=== PATIENT | female | born 1940 | race Two or more races ===

== ENCOUNTER 2020-05-01 09:00 | Inpatient (IN) | payer OTHER ==
[~2020-05-01] VITALS: Ht 167.6 cm; Wt 87.9 kg
[~2020-05-01 09:00] MED LIST: ACYC-161 PO; ALBU108A14 IN; ASCO500C16 PO; B-CO1TAB8 PO; BIOT1CAP PO; CALC1TAB PO; CARB0.5D8 EACHEYE; CLON0.5T10 PO; COEN50CH PO; EYEL1PAD EX; GABA-339 PO; HYDR-531 PO; LATA0.0019 EACHEYE; LEVO88TA4 PO; LISI-648 PO; LOVA20TA4 PO; MAGN400C3 PO; MULT-688 PO; MULT1CHW18 PO; OMEG1CAP50 PO; POTA99CA2 PO; SENN1TAB14 PO; UMEC1AER IN; [UNRECOGNIZED DRUG - CODE] PO
[2020-05-01] MEDS ORDERED: CELECOXIB 100 MG CAP PO ONE (09:15)
[2020-05-01] MEDS ORDERED: ACETAMINOPHEN IV 1000 MG/100ML (10MG/ML) IV ONE ×2 (09:15→14:45)
[2020-05-01] MEDS ORDERED: PREGABALIN CAPSULE 75 MG CAP PO ONE (09:15)
[2020-05-01] MEDS ORDERED: ceFAZolin 1GM/50ML 50 ML IV ONE (09:36)
[2020-05-01] MEDS ORDERED: TRANEXAMIC ACID 0 ML ONE (10:40)
[2020-05-01] MEDS: BUPIVACAINE W/ EPINEPH 0.25% INJ 50ML MDV ONE ×2 (10:40→13:35)
[2020-05-01] MEDS ORDERED: VANCOMYCIN HCL 1000 MG VL ONE (10:49)
[2020-05-01] MEDS ORDERED: MIDAZOLAM HCL 1MG/1ML-2 ML VIAL ONE (11:22)
[2020-05-01] MEDS ORDERED: ROCURONIUM 10MG/ML 10ML VIAL IV ONE (11:22)
[2020-05-01] MEDS ORDERED: fentaNYL CITRATE 100 MCG/2 ML VL ONE (11:22)
[2020-05-01] MEDS ORDERED: SUCCINYLCHOLINE CHLORIDE 20 MG/ML 10ML VIAL IV ONE (11:24)
[2020-05-01] MEDS ORDERED: PROPOFOL 10 MG/ML 20 ML IV ONE (11:24)
[2020-05-01] MEDS ORDERED: HYDROmorphone HCL 2 MG/ML VL ONE (11:59)
[2020-05-01] MEDS ORDERED: TRANEXAMIC ACID 10 ML ONE (12:03)
[2020-05-01] MEDS ORDERED: MORPHINE SULF(PF) 0.5MG/ML 10ML VIAL ONE (12:04)
[2020-05-01] MEDS ORDERED: ONDANSETRON HCL 4 MG/2 ML VIAL IV PRN ×2 (14:00→14:30)
[2020-05-01] MEDS ORDERED: hydrALAZINE HCL 20 MG/ML VL IV PRN (14:00)
[2020-05-01] MEDS ORDERED: HYDROmorphone HCL 2 MG/ML VL IV PRN ×3 (14:00→14:30)
[2020-05-01] MEDS: HYDROmorphone HCL 2 MG/ML VL ONE ×4 (14:00→14:30)
[2020-05-01] MEDS ORDERED: ePHEDrine SULFATE 50 MG/ML AMP IV PRN (14:00)
[2020-05-01] MEDS ORDERED: MORPHINE SULF INJ 2 MG/ML SYRINGE 1ML IV PRN (14:30)
[2020-05-01] MEDS ORDERED: NITROGLYCERIN 0.4 MG SL TAB SL PRN (14:30)
[2020-05-01] MEDS ORDERED: OXYCODONE W/ ACETAMINOPHEN 5/325MG TABLET PO PRN (14:30)
[2020-05-01] MEDS ORDERED: ACETAMINOPHEN 325 MG TAB PO PRN (14:30)
[2020-05-01] MEDS ORDERED: traMADol HCL 50 MG TAB PO PRN (14:30)
[2020-05-01] MEDS: OXYCODONE W/ ACETAMINOPHEN 5/325MG TABLET PO PRN (16:46)
[2020-05-01] MEDS: ACCU-CHEK COMFORT CURVE STRIP VI SCH ×2 (17:00→22:23)
[2020-05-01] MEDS ORDERED: SENNA 8.6 MG TAB PO SCH (17:30)
[2020-05-01] MEDS ORDERED: ALBUTEROL SULF HFA 90MCG INH 200DOSE IN PRN (18:00)
[2020-05-01] MEDS: LACTATED RINGER'S 1,000 ML IV SCH ×2 (18:08→23:54)
[2020-05-01] MEDS: ceFAZolin 1GM/50ML 50 ML IV SCH ×2 (18:08→23:19)
[2020-05-01] MEDS: KETOROLAC TROMETH 30 MG/ML 1ML VIAL IV SCH ×2 (18:42→23:53)
[2020-05-01] MEDS: BIOTIN PO SCH ×2 (18:45→22:00)
[2020-05-01] MEDS: B COMPLEX PO SCH ×2 (18:45→22:00)
[2020-05-01] MEDS: FOLIC ACI PO SCH ×2 (18:45→22:00)
[2020-05-01 19:55] VITALS: BP 135/85
--- NOTE | 2020-05-01 19:55 | NUR ---
Opening note Telemetry admit from OR SAEEDMARIANA admitted to Telemetry unit after SBAR received. Patient oriented to MADDI CORNEJO, RN primary RN, unit, room, bed, and unit policies regarding patient care and visiting hours. Patient now on continuous telemetry monitoring, tele box #31 and telemetry reading on arrival to unit is NSR HR 86. Patient placed on bedside oxygen, weighed by bedscale and encouraged to call if they need something. All questions and concerns addressed, patient verbalized understanding. Left knee dressing is intact and no bleeding noted. Pedal pulses both palpated. Capillary refill present. Call light within reach. Will continue to monitor.
[2020-05-01] MEDS ORDERED: GLYCERIN EACHEYE PRN (21:30)
[2020-05-01] MEDS ORDERED: CARBOXYMETHYLCELLULOSE EACHEYE PRN (21:30)
[2020-05-01] MEDS: GABAPENTIN 300 MG CAP PO SCH (21:45)
[2020-05-01] MEDS: PRAVASTATIN SODIUM 20 MG TAB PO SCH (21:46)
[2020-05-01] MEDS: MAGNESIUM OXIDE 400 MG TAB PO SCH (21:46)
[2020-05-01] MEDS: SENNA 8.6 MG TAB PO SCH (21:47)
[2020-05-01] MEDS: oxyCODONE ER 10 MG TAB PO SCH (21:48)
[2020-05-01] MEDS: clonazePAM 0.5 MG TAB PO SCH (21:49)
[2020-05-01] MEDS: SODIUM CHLOR 0.9% PF (SALINE LOCK) 10ML VIAL/SYR IV SCH (21:56)
[2020-05-01] MEDS: LATANOPROST 0.005 % OPTH(EYE) SOL 2.5ML EACHEYE SCH (21:58)
[2020-05-01 22:00] VITALS: BP 135/85
[2020-05-02 04:47] VITALS: BP 156/67
[2020-05-02] MEDS: ceFAZolin 1GM/50ML 50 ML IV SCH (04:54)
[2020-05-02] MEDS: SODIUM CHLOR 0.9% PF (SALINE LOCK) 10ML VIAL/SYR IV SCH ×3 (04:54→21:32)
[2020-05-02] MEDS: OXYCODONE W/ ACETAMINOPHEN 5/325MG TABLET PO PRN ×2 (04:55→16:17)
--- NOTE | 2020-05-02 05:59 | NUR ---
Respiratory note: HR 86, RR 14, SPO2 95% ON RA, BS CLEAR. PRN MDI NOT INDICATED AT THIS TIME. NO SIGNS OR SYMPTOMS OF RESPIRATORY DISTRESS NOTED AT THIS TIME. PT INFORMED TO HIT CALL BUTTON IF FEELING SOB OR WHEEZING.
[2020-05-02] MEDS: LEVOTHYROXINE SODIUM 88 MCG TAB PO SCH (06:28)
[2020-05-02] MEDS: GABAPENTIN 300 MG CAP PO SCH ×3 (06:28→21:31)
[2020-05-02] MEDS: ACCU-CHEK COMFORT CURVE STRIP VI SCH ×4 (06:28→21:40)
[2020-05-02] MEDS: KETOROLAC TROMETH 30 MG/ML 1ML VIAL IV SCH ×3 (06:28→18:22)
--- NOTE | 2020-05-02 06:30 | NUR ---
Suzy Went in to remove mireles per md orders, Patient states she did not get sleep last night and wants the mireles removed a little later, when she has had more rest. Call light within reach, will continue to monitor.
[2020-05-02] MEDS: POTASSIUM CITRATE PO SCH (08:00)
--- NOTE | 2020-05-02 08:00 | NUR ---
RECEIVED PATIENT ALERT AND ORIENTED X4, NOT IN DISTRESS, WHEEZING LS IN BILATERAL UPPER AND LOWER LUNG LOBES, RR=18 SAT=94%, DEEP BREATHING AND COUGHING ENCOURAGED, VERBALIZED AND DEMONSTRATED UNDERSTANDING, DENIED CP AND SOB, SR R=82 ON TELE MONITOR, ABDOMEN SOFT WITH ACTIVE BS, LAST BM= 05/01/20 REPORTED, BAJWA CATH IN PLACE AND PATENT, DRAINING CLEAR YELLOW URINE, PENDING D/C BAJWA, PROVIDED AND OFFERED TO D/C BAJWA ORDERED, PATIENT REFUSED, SKIN IS INTACT, WARM TO TOUCH, RADIAL AND PEDAL PULSES PALPABLE, LT. KNEE SURGICAL SITE COVERED WITH DRY AND INTACT DRESSING, ABLE RO MOVE FOOT AND WIGGLE TOES, TOLERATED WELL, HEAD OF BED ELEVATED, BED ON LOW POSITION, RAILS UP X2, CALL LIGHT ON REACH, WILL CONTINUE MONITORING.
[2020-05-02] MEDS: UMECLIDINIUM VILANTEROL IN SCH (08:08)
[2020-05-02 09:00] VITALS: BP 148/74
[2020-05-02] MEDS: oxyCODONE ER 10 MG TAB PO SCH ×2 (09:12→21:30)
[2020-05-02] MEDS: MULTIPLE VITAMINS W/ MINERALS TAB PO SCH (09:12)
[2020-05-02] MEDS: CALCIUM W/VIT D (600MG/400IU) TAB PO SCH (09:13)
[2020-05-02] MEDS: ASCORBIC ACID 500 MG TAB PO SCH (09:14)
[2020-05-02] MEDS: ACYCLOVIR 400 MG TAB PO SCH (09:14)
[2020-05-02] MEDS: LISINOPRIL 10 MG TAB PO SCH (09:14)
[2020-05-02] MEDS: ENOXAPARIN SOD 40 MG/0.4 ML SYRINGE SC SCH (09:15)
[2020-05-02] MEDS: CHOLECALCIFEROL (VITD3) 1,000UNIT=25mCg TAB PO SCH (09:15)
[2020-05-02] MEDS: LACTATED RINGER'S 1,000 ML IV SCH ×2 (09:15→20:18)
[2020-05-02] MEDS: BIOTIN 1 MG PO SCH (10:00)
[2020-05-02] MEDS: COENZYME Q10 400 MG PO SCH (10:00)
[2020-05-02 10:44] LABS: Basophils # (auto) 0.1 10 ^3/uL (0-0.2); Basophils % (auto) 0.5 % (0.0-2.0); Eosinophils # (auto) 0.1 10 ^3/uL (0-0.8); Eosinophils % (auto) 0.7 % (0.0-7.0); Hematocrit 41.2 % (36.0-46.0); Hemoglobin 13.9 g/dL (12.2-16.2); Lymphocytes % (auto) 20.3 % (10.0-50.0); Mean Corpuscular Hemoglobin 33.2 pg (28.0-32.0); Mean Corpuscular Hgb Conc. 33.8 g/dL (32.0-36.0); Mean Corpuscular Volume 98.3 fL (80.0-100.0); Monocytes # (auto) 0.9 10 ^3/uL (0-1.3); Monocytes % (auto) 9.1 % (0.0-12.0); Neutrophils # (auto) 6.8 10 ^3/uL (1.6-8.6); Neutrophils % (auto) 69.4 % (37.0-80.0); Nucleated Red Blood Cells % 0.1 %; Platelet Count (auto) 287 10^3/uL (140-450); Red Blood Cells 4.19 10^6/uL (4.0-5.20); Red Cell Distribution Width 14.3 % (11.8-14.3); White Blood Cell 9.8 10^3/uL (4.4-10.8)
[2020-05-02 14:00] VITALS: BP 143/70
--- NOTE | 2020-05-02 14:00 | NUR ---
OUT OF BED WITH PT, AMBULATED IN THE ROOM USING WALKER, BACK TO THE BED, TOLERATED WELL, LT. LEG PUT ON CPM BY PT, RESTING AND TOLERATING WELL, OFFERED TO REMOVE BAJWA CATH ORDERED, PATIENT REFUSED, WILL CONTINUE MONITORING.
[2020-05-02 16:53] VITALS: BP 147/74
[2020-05-02 17:58] VITALS: BP 147/74
--- NOTE | 2020-05-02 19:00 | NUR ---
RT NOTE PT WAS SEEN BY RT FOR PRN MDI TX. PT STATES NO TREATMENT NEEDED AT THIS TIME. NO SOB OR DISTRESS NOTED. HR 96, RR 20, BS CLEAR/DIM, POX 95% ON ROOM AIR. NO PRN TX INDICATED AT THIS TIME. PT AWARE TO CALL IF TX NEEDED LATER. CONT ORDERED. Addendum: 05/02/20 at 1941 by Gloria Bernardo RT Amended: Links added.
--- NOTE | 2020-05-02 19:31 | NUR ---
REPORT WAS GIVEN TO THE FIRST PRESS OPERATOR RN.
--- NOTE | 2020-05-02 20:00 | NUR ---
Patient refusing to D/C Almonte per MD orders Patient refusing to D/C [place] and requests to D/C [place] on 05/03/[address] at [address] [place] [address] and patent, hung below bladder, draining clear/yellow urine. Will continue to monitor patient Q1 and PRN.
[2020-05-02] MEDS: clonazePAM 0.5 MG TAB PO SCH (21:31)
[2020-05-02] MEDS: SENNA 8.6 MG TAB PO SCH (21:31)
[2020-05-02] MEDS: MAGNESIUM OXIDE 400 MG TAB PO SCH (21:31)
[2020-05-02] MEDS: PRAVASTATIN SODIUM 20 MG TAB PO SCH (21:31)
[2020-05-02] MEDS: LATANOPROST 0.005 % OPTH(EYE) SOL 2.5ML EACHEYE SCH (21:40)
[2020-05-02] MEDS: B COMPLEX PO SCH (21:40)
[2020-05-02] MEDS: BIOTIN PO SCH (21:40)
[2020-05-02] MEDS: FOLIC ACI PO SCH (21:40)
[2020-05-03 00:06] VITALS: BP 136/84
[2020-05-03] MEDS: KETOROLAC TROMETH 30 MG/ML 1ML VIAL IV SCH ×3 (00:36→12:00)
[2020-05-03 05:45] VITALS: BP 151/53
[2020-05-03] MEDS: SODIUM CHLOR 0.9% PF (SALINE LOCK) 10ML VIAL/SYR IV SCH ×3 (06:00→21:34)
[2020-05-03] MEDS: GABAPENTIN 300 MG CAP PO SCH ×3 (06:13→21:32)
[2020-05-03] MEDS: LEVOTHYROXINE SODIUM 88 MCG TAB PO SCH (06:14)
[2020-05-03] MEDS: LACTATED RINGER'S 1,000 ML IV SCH ×2 (06:18→16:18)
--- NOTE | 2020-05-03 06:40 | NUR ---
Suzy RIVAS'D per MD orders. Patient tolerated well. Will continue to monitor patient Q1 and PRN.
[2020-05-03] MEDS: ACCU-CHEK COMFORT CURVE STRIP VI SCH ×4 (06:43→21:34)
[2020-05-03 06:50] LABS: Hematocrit 38.1 % (36.0-46.0); Hemoglobin 13.2 g/dL (12.2-16.2)
--- NOTE | 2020-05-03 07:10 | NUR ---
End of Shift Note Endorsed care to dayshift RN. At this time patient has no s/s of distress or SOB.
[2020-05-03] MEDS: UMECLIDINIUM VILANTEROL IN SCH (08:00)
[2020-05-03] MEDS: POTASSIUM CITRATE PO SCH (08:00)
--- NOTE | 2020-05-03 08:00 | NUR ---
ASSESSMENT NOTE PT IS ALERT ORIENTED X4, SITTING AT THE SIDE OF THE BED, NO DISTRESS NOTED, PT HAS HER LEFT LEG ELEVATED, DRY CLEAN DRESSING NOTED AT THE LEFT KNEE, PT IS ABLE TO SELF REPOSITION AND VERBALIS HER DEMANDS, ON PAIN MANAGEMENT NEEDED, CALL LIGHT WITHIN REACH
[2020-05-03 09:00] VITALS: BP_SYST 107; BP_SYST 114; BP_DIAS 58
--- NOTE | 2020-05-03 09:17 | NUR ---
I faxed DME order to [facility].
[2020-05-03] MEDS: ENOXAPARIN SOD 40 MG/0.4 ML SYRINGE SC SCH (09:51)
[2020-05-03] MEDS: CHOLECALCIFEROL (VITD3) 1,000UNIT=25mCg TAB PO SCH (09:51)
[2020-05-03] MEDS: oxyCODONE ER 10 MG TAB PO SCH ×2 (09:54→21:33)
[2020-05-03] MEDS: ACYCLOVIR 400 MG TAB PO SCH (09:55)
[2020-05-03] MEDS: ASCORBIC ACID 500 MG TAB PO SCH (09:55)
[2020-05-03] MEDS: MULTIPLE VITAMINS W/ MINERALS TAB PO SCH (09:55)
[2020-05-03] MEDS: LISINOPRIL 10 MG TAB PO SCH (09:59)
[2020-05-03] MEDS: COENZYME Q10 400 MG PO SCH (10:00)
[2020-05-03] MEDS: BIOTIN 1 MG PO SCH (10:00)
[2020-05-03] MEDS: CALCIUM W/VIT D (600MG/400IU) TAB PO SCH (10:33)
--- NOTE | 2020-05-03 10:44 | NUR ---
assessment Patient is a 79 year old female who is alert and oriented. Patients cognitive abilities are intact. Prior to admission patient lived home with family and functioned independently. Patient informed me she is able to care for her own ADLs. Per patient she will return home to her prior living arrangements post discharge and family will transport her home. Patient has been admitted for knee replacement. Patient has a rollator and a cane for use. Patient will need a fww, home health PT and a bedside commode for home. Patients PCP is Dr porter. I informed patient she has a right to speak to a pediatric social worker regarding all care. I informed patient she has a right to participate in any and all discharge planning. Patient has a POA and advanced directive. Patient verbalized understanding and agreed to discharge plan. Addendum: 05/03/20 at 1046 by Damaris SAL Amended: Links added.
--- NOTE | 2020-05-03 11:01 | NUR ---
PAGE DR SZYMANSKI PT NEED A STRONG STOOL SOFTENER
--- NOTE | 2020-05-03 11:07 | NUR ---
DR SZYMANSKI CALLED BACK , MADE AWARE OF THE LAST BM WAS 04/30/20, NEW ORDERS OF MIRALAX
[2020-05-03] MEDS ORDERED: POLYETHYLENE GLYCOL 17 GM PWDR PO PRN (11:15)
--- NOTE | 2020-05-03 12:24 | NUR ---
I called [facility] and spoke with case managers Rosaura-FWW/BSC will be delivered here between 3-4pm from (phone number [phone]).
[2020-05-03 13:00] VITALS: BP 151/70
--- NOTE | 2020-05-03 13:15 | NUR ---
Respiratory note: PT ASSESSED FOR PRN MEDNEB. PT IN NO DISTRESS AT THIS TIME. PT ON ROOM AIR. HR 91, RR 18, SP02 98%. B/S ARE DIMINISHED. NO TX INDICATED AT THIS TIME. PT AWARE TO HAVE RT PAGED IF BECOMES SOB.
[2020-05-03] MEDS: OXYCODONE W/ ACETAMINOPHEN 5/325MG TABLET PO PRN (13:55)
--- NOTE | 2020-05-03 13:56 | NUR ---
PHYSICAL THERAPY AT BED SIDE ASSIST PT TO PLACE HER LEFT LEG OVER A CPM
--- NOTE | 2020-05-03 15:45 | NUR ---
CPM REMOVED, PT TOLERATED WELL
[2020-05-03 17:00] VITALS: BP 104/65
--- NOTE | 2020-05-03 18:36 | NUR ---
PT CONTINUE STABLE, CONTINUE MONITORING
--- NOTE | 2020-05-03 19:30 | NUR ---
Opening Shift Note Assumed care of patient, awake and alert. No S/S of distress/SOB or pain. Instructed on POC and to call for assist PRN, will continue to monitor for changes Q1hr and PRN.
--- NOTE | 2020-05-03 19:48 | NUR ---
RT NOTE PT WAS SEEN BY RT FOR PRN HHN TX ASSESSMENT. PT STATES NO TREATMENT NEEDED AT THIS TIME. HR 95, RR 16, BS CLEAR/DIM, POX 9% ON ROOM AIR AND APPEARS TO TOLERATE WELL. CONT ORDERED Addendum: 05/03/20 at 2336 by Gloria Bernardo RT Amended: Links added.
[2020-05-03] MEDS: LATANOPROST 0.005 % OPTH(EYE) SOL 2.5ML EACHEYE SCH (21:31)
[2020-05-03] MEDS: FOLIC ACI PO SCH (21:31)
[2020-05-03] MEDS: BIOTIN PO SCH (21:31)
[2020-05-03] MEDS: B COMPLEX PO SCH (21:31)
[2020-05-03] MEDS: PRAVASTATIN SODIUM 20 MG TAB PO SCH (21:32)
[2020-05-03] MEDS: MAGNESIUM OXIDE 400 MG TAB PO SCH (21:33)
[2020-05-03] MEDS: SENNA 8.6 MG TAB PO SCH (21:33)
[2020-05-03] MEDS: clonazePAM 0.5 MG TAB PO SCH (21:33)
[2020-05-03 22:00] VITALS: BP 123/72
[2020-05-04] MEDS: LACTATED RINGER'S 1,000 ML IV SCH (02:18)
[2020-05-04 05:00] VITALS: BP 133/69
[2020-05-04] MEDS: SODIUM CHLOR 0.9% PF (SALINE LOCK) 10ML VIAL/SYR IV SCH ×3 (05:27→22:28)
[2020-05-04] MEDS: LEVOTHYROXINE SODIUM 88 MCG TAB PO SCH (06:15)
[2020-05-04] MEDS: GABAPENTIN 300 MG CAP PO SCH ×3 (06:15→22:29)
[2020-05-04] MEDS: ACCU-CHEK COMFORT CURVE STRIP VI SCH (06:16)
[2020-05-04 07:01] LABS: Hematocrit 36.6 % (36.0-46.0); Hemoglobin 12.6 g/dL (12.2-16.2)
[2020-05-04] MEDS: POTASSIUM CITRATE PO SCH (08:00)
[2020-05-04 09:00] VITALS: BP 126/78
[2020-05-04] MEDS: UMECLIDINIUM VILANTEROL IN SCH (09:47)
[2020-05-04] MEDS: CHOLECALCIFEROL (VITD3) 1,000UNIT=25mCg TAB PO SCH (09:47)
[2020-05-04] MEDS: COENZYME Q10 400 MG PO SCH (09:47)
[2020-05-04] MEDS: ASCORBIC ACID 500 MG TAB PO SCH (09:47)
[2020-05-04] MEDS: BIOTIN 1 MG PO SCH (09:47)
[2020-05-04] MEDS: oxyCODONE ER 10 MG TAB PO SCH ×2 (09:47→22:29)
[2020-05-04] MEDS: ACYCLOVIR 400 MG TAB PO SCH (09:48)
[2020-05-04] MEDS: CALCIUM W/VIT D (600MG/400IU) TAB PO SCH (09:48)
[2020-05-04] MEDS: MULTIPLE VITAMINS W/ MINERALS TAB PO SCH (09:48)
[2020-05-04] MEDS: ENOXAPARIN SOD 40 MG/0.4 ML SYRINGE SC SCH (09:48)
[2020-05-04] MEDS: LISINOPRIL 10 MG TAB PO SCH (09:49)
--- NOTE | 2020-05-04 11:21 | NUR ---
RT NOTE: PRN BREATHING TX. NOT INDICATED AT THIS TIME. PT. DENIES ANY SOB. BREATH SOUNDS ARE CLEAR/DIMINISHED. PT. HR 100, RR 16, POX 99% R/A. PT. AWARE TO NOTIFY RN IF BREATHING TX. IS NEEDED.
--- NOTE | 2020-05-04 11:53 | NUR ---
Nutrition Assessment Notes Please refer to link for full assessment notes. Est Energy needs: [id number] kcals (20-23 kcal/kgBW) Est Protein needs: 97-118 gms/day (1.1-1.5 gm/kgIBW) d/t pt adiposity Will continue to monitor and reassess prn. Addendum: 05/04/20 at [address] Amended: Links added.
[2020-05-04 13:00] VITALS: BP 131/63
[2020-05-04] MEDS: OXYCODONE W/ ACETAMINOPHEN 5/325MG TABLET PO PRN (13:24)
[2020-05-04 16:31] VITALS: BP 114/71
[2020-05-04] MEDS ORDERED: diphenhdrAMINE HCL 25 MG CAP PO ONE (16:45)
[2020-05-04 22:00] VITALS: BP 127/70
[2020-05-04] MEDS: SENNA 8.6 MG TAB PO SCH (22:00)
[2020-05-04] MEDS: LATANOPROST 0.005 % OPTH(EYE) SOL 2.5ML EACHEYE SCH (22:27)
[2020-05-04] MEDS: BIOTIN PO SCH (22:28)
[2020-05-04] MEDS: B COMPLEX PO SCH (22:28)
[2020-05-04] MEDS: FOLIC ACI PO SCH (22:28)
[2020-05-04] MEDS: MAGNESIUM OXIDE 400 MG TAB PO SCH (22:29)
[2020-05-04] MEDS: clonazePAM 0.5 MG TAB PO SCH (22:29)
[2020-05-04] MEDS: PRAVASTATIN SODIUM 20 MG TAB PO SCH (22:30)
[2020-05-05] MEDS ORDERED: diphenhdrAMINE HCL 25 MG CAP PO PRN
[2020-05-05 05:00] VITALS: BP 117/51
[2020-05-05] MEDS: SODIUM CHLOR 0.9% PF (SALINE LOCK) 10ML VIAL/SYR IV SCH (06:32)
[2020-05-05] MEDS: LEVOTHYROXINE SODIUM 88 MCG TAB PO SCH (06:32)
[2020-05-05] MEDS: GABAPENTIN 300 MG CAP PO SCH (06:32)
[2020-05-05] MEDS: POTASSIUM CITRATE PO SCH (08:00)
[2020-05-05] MEDS: UMECLIDINIUM VILANTEROL IN SCH (08:06)
--- NOTE | 2020-05-05 08:06 | NUR ---
PT. ASSESSED FOR PRN. MN. TX., NO RESP. DISTRESS OR SOB NOTED. BS. ARE CLEAR,MT=940,RR=18,SP02=96% ON RA. MDI TX. NOT INDICATED AT THIS TIME. NO TX. GIVEN, PT INSTRUCTED TO CALL IF NEEDED.
--- NOTE | 2020-05-05 08:13 | NUR ---
I called [facility]-immigration case worker are not in yet. I called and spoke with Eileen-she said she has had no orders sent to them by [facility] this month for this patient. I spoke with nurse Pascale, patient does have a rollator that was issued to her last month but Dr. Penny wants patient to have the FWW due to safety reasons.
[2020-05-05 08:33] VITALS: BP 126/78
--- NOTE | 2020-05-05 08:57 | NUR ---
I called [facility] and spoke with case maker Rosaura-she said the order was sent to on 05/03-I let her know that patient is leaving today at 11am-she will call [facility] and give me a call back.
[2020-05-05 09:00] VITALS: BP 133/85
[2020-05-05] MEDS: BIOTIN 1 MG PO SCH (09:47)
[2020-05-05] MEDS: COENZYME Q10 400 MG PO SCH (09:47)
[2020-05-05] MEDS: ENOXAPARIN SOD 40 MG/0.4 ML SYRINGE SC SCH (09:50)
[2020-05-05] MEDS: ACYCLOVIR 400 MG TAB PO SCH (09:50)
[2020-05-05] MEDS: CHOLECALCIFEROL (VITD3) 1,000UNIT=25mCg TAB PO SCH (09:50)
[2020-05-05] MEDS: ASCORBIC ACID 500 MG TAB PO SCH (09:51)
[2020-05-05] MEDS: MULTIPLE VITAMINS W/ MINERALS TAB PO SCH (09:51)
[2020-05-05] MEDS: oxyCODONE ER 10 MG TAB PO SCH (09:51)
[2020-05-05] MEDS: CALCIUM W/VIT D (600MG/400IU) TAB PO SCH (09:51)
[2020-05-05] MEDS: LISINOPRIL 10 MG TAB PO SCH (09:52)
--- NOTE | 2020-05-05 09:54 | NUR ---
I called [facility] [employer] Rosaura [phone] and left message asking for update on the status of the FWW and BSC.
--- NOTE | 2020-05-05 10:20 | NUR ---
I spoke with [facility] [employer] Elizabeth-she verified that [facility] will deliver FWW and BSC to patient's home today.
--- NOTE | 2020-05-05 11:03 | NUR ---
Discharge instructions given as ordered. Encourage to follow up with PMD as instructed. All questions and concerns addressed. Patient verbalized understanding. Medication reconciliation form completed and copy given to patient. IV removed with catheter intact, pressure dressing applied . Telemetry unit returned to ICU. Patient taken to vehicle via wheelchair with all personal belongings, accompanied by staff and family member. No distress noted at time of departure.
== END 2020-05-05 11:00 | disposition home or self-care (01) | DRG 470 ==
LOC: OVERFLOW 09:01 → EDSTATUS 11:30 → TELE-CENTR 19:55
PROVIDERS: ADMIT Orthopaedic Surgery; ATTEND Orthopaedic Surgery
PROC: 8E0YXBZ Computer Assisted Procedure of Lower Extremity (ICD-10-PCS; 2020-05-01)
PROC: 0SRD069 Replacement of Left Knee Joint with Oxidized Zirconium on Polyethylene Synthetic Substitute, Cemented, Open Approach (ICD-10-PCS; principal; 2020-05-01 11:16)
DX: M17.12 Unilateral primary osteoarthritis, left knee (principal); M21.062 Valgus deformity, not elsewhere classified, left knee; Z20.828 Contact with and (suspected) exposure to other viral communicable diseases; J44.9 Chronic obstructive pulmonary disease, unspecified; Z88.8 Allergy status to other drugs, medicaments and biological substances; Z88.6 Allergy status to analgesic agent; Z91.040 Latex allergy status; Z01.818 Encounter for other preprocedural examination
CPT/HCPCS: 36415; 73560; 82962; 85014; 85018; 85025; 86850; 86900; 86901; C1713; G0378; J0131; J0330; J0690; J1885; J2250; J2704